=== PATIENT | female | born 1960 | race Caucasian/White ===

== ENCOUNTER 2017-11-05 11:59 | Observation (INO) | payer BC, MEDICAID ==
[2017-11-05 12:08] VITALS: BMI 32.0
--- NOTE | 2017-11-05 12:51 | ED PDOC ---
HPI: General Adult Time Seen by Provider: 11/05/17 12:28 Chief Complaint (Nursing): Dizziness/Lightheaded Additional Complaint(s): 57 y/o F c PMHx HTN, asthma p/w vertigo x 2 weeks. Patient states she has had a headache for over 3 weeks, which she describes as a tightness in the bitemporal area. She notes that 2 weeks ago (Last time well), she began having a spinning sensation that has been constant, does not seem exacerbated by head turning, and has made her unable to ambulate. She states she came to ED today with 2 family members holding each of her arms. Today, the vertigo became more severe and made her nauseated, causing her to vomit once. She also reports intermittent chills. Denies fever, decreased visual acuity, numbness, weakness, difficulty speaking/drinking/eating, dysuria, dyspnea. NIHSS Stroke Scale - Date/Time Evaluation Performed Date Performed: 11/05/17 Time Performed: 12:43 When Was NIHSS Performed: Baseline - How Severe is the Stroke Level of Consciousness: 0=Alert LOC to Questions: 0=Both comments correct LOC to commands: 0=Obeys both correctly Best Gaze: 0=Normal Visual: 0=No visual loss Facial: 0=Normal Motor Arm - Left: 0=No drift Motor Arm - Right: 0=No drift Motor Leg - Left: 0=No drift Motor Leg - Right: 0=No drift Limb Ataxia: 0=Absent Sensory: 0=Normal Best Language: 0=No aphasia Dysarthia: 0=Normal articulation Extinction & Inattention (Neglect): 0=Normal, no object Score: 0 Severity Of Stroke: 0 = No Stroke rTPA Inclusion/Exclusion - Refusal of Treatment Patient Refused Treatment: No - Inclusion Criteria for Altepase Patient is 18 years or Older: Yes The Clinical Diagnosis of Ischemic Stroke That is Causing a Potentially Disabling Neurological Deficit: No Time of Onset is Well Established to be Less Than 270 Minute Before Treatment Would Begin: No Risk/Benefit Discussed With Patient/Family Member Present: Yes Past Medical History Vital Signs: Last Vital Signs Temp 98.4 F 11/05/17 12:08 Pulse 84 11/05/17 14:03 Resp 20 11/05/17 12:08 BP 136/82 11/05/17 12:08 Pulse Ox 97 11/05/17 14:03 - Medical History PMH: Asthma, HTN (no medications) Denies: Chronic Kidney Disease - Surgical History Surgical History: - Family History Family History: States: Unknown Family Hx - Home Medications Home Medications: Ambulatory Orders Medication Instructions Recorded Albuterol 0.083% [Albuterol 0.083% 3 ml IH TID PRN 08/24/15 Inhal Liliana (2.5 mg/3 ml) UD] Albuterol HFA [Ventolin HFA 90 1 puff IH TID PRN 08/24/15 mcg/actuation (8 g)] Albuterol Sulfate [Proair Hfa] 1 puff IH BID PRN 11/05/17 - Allergies Allergies/Adverse Reactions: Allergies Allergy/AdvReac Type Severity Reaction Status Date / Time FISH Allergy RASH Verified 08/26/15 12:30 fluticasone propionate Allergy SHORTNESS Verified 08/26/15 12:33 [From Advair Diskus] OF BREATH iodine Allergy URTICARIA Verified 11/05/17 12:19 salmeterol xinafoate Allergy SHORTNESS Verified 08/26/15 12:33 [From Advair Diskus] OF BREATH Review of Systems ROS Statement: Except As Marked, All Systems Reviewed And Found Negative Constitutional: Negative for: Fever Cardiovascular: Negative for: Chest Pain Physical Exam - Physical Exam Comments: Gen: NAD Head: NC/AT Eyes: PERRL ENT: MMM, no pharyngeal erythema or exudates Neck: Supple Chest: No tenderness CV: Regular rate Lungs: CTA b/l Abd: Soft, NT Back: No CVA tenderness Skin: No rash Extremities: FROM x 4 Neuro: Alert, oriented x 3, CNN II to XII intact, motor 5/5 x 4, sensation to light touch intact bilaterally, FTN, HTS, and ANTONIO all performed slowly without ataxia, gait unsteady. Jana Hallpike no effect. - Laboratory Results Result Diagrams: 11/05/17 12:48 11/05/17 12:48 - ECG ECG Rhythm: Positive for: Normal QRS, Normal ST Segment, Sinus Rhythm (normal) Rate: 84 O2 Sat by Pulse Oximetry: 97 (RA) Pulse Ox Interpretation: Normal Medical Decision Making Medical Decision Making: Time:1326 HISTORY: constant vertigo COMPARISON: No prior. FINDINGS: LUNGS: No active pulmonary disease. PLEURA: No significant pleural effusion identified, no pneumothorax apparent. CARDIOVASCULAR: Normal. OSSEOUS STRUCTURES: No significant abnormalities. VISUALIZED UPPER ABDOMEN: Normal. OTHER FINDINGS: None. IMPRESSION: No active disease. Aspirin administered. Dr. Jackson consulted, recommends Valium 2mg Q8H and MRA Head and neck. States that CVA by this time should be evident on CT Head but symptoms could still be result of vertebrobasilar insufficiency. Hospitalist accepts admission. Disposition - Clinical Impression Clinical Impression: Vertigo, constant - Patient ED Disposition Is Patient to be Admitted: Yes Discussed With : Berto Jackson Doctor Will See Patient In The: Hospital - Disposition Disposition Time: 16:44 Condition: STABLE Forms: [facility] ([place])
[2017-11-05 12:56] LABS: BASO # 0.1 K/uL (0.0-0.2); BASO % 0.7 % (0.0-2.0); EOS # 0.1 K/uL (0.0-0.7); EOS % 1.4 % (0.0-4.0); HEMOGLOBIN 14.4 g/dL (12.0-16.0); LYMPH # 1.4 K/uL (1.0-4.3); LYMPH % 15.1 % (20.0-40.0); MEAN CORPUSCULAR HEMOGLOBIN 28.5 pg (27.0-31.0); MEAN CORPUSCULAR HGB CONC 34.8 g/dL (33.0-37.0); MEAN PLATELET VOLUME 8.6 fl (7.2-11.7); MONO # 0.6 K/uL (0.0-0.8); NEUT # 6.9 K/uL (1.8-7.0); NEUT % 75.8 % (50.0-75.0); NRBC % 0.2 % (0.0-0.0); RBC 5.05 Mil/uL (3.80-5.20); RED CELL DISTRIBUTION WIDTH 12.8 % (11.5-14.5); WHITE BLOOD COUNT 9.1 K/uL (4.8-10.8)
[2017-11-05] MEDS: Sodium Chloride 0.9% 1,000 ML IV SCH ×2 (13:01→21:58)
[2017-11-05 13:06] LABS: ALB/GLOB RATIO 1.2 (1.0-2.1); ALBUMIN 4.2 g/dL (3.5-5.0); ALT/SGPT 41 U/L (9-52); AST/SGOT 28 U/L (14-36); BLOOD UREA NITROGEN 12 mg/dl (7-17); CALCIUM 9.5 mg/dL (8.4-10.2); GFR AFRICAN-AMERICAN > 60; GFR NON-AFRICAN AMERICAN > 60; HDL CHOLESTEROL 46 MG/DL (30-70)
[2017-11-05 13:16] LABS: LDL CHOLESTEROL 141 mg/dL (0-129)
[2017-11-05 13:20] LABS: INR 1.1 (0.9-1.2); PARTIAL THROMBOPLASTIN TIME 29.9 Seconds (25.6-37.1); PROTHROMBIN TIME 12.1 Seconds (9.8-13.1)
[2017-11-05 13:20] LABS: SQUAMOUS EPITHIAL 2 /hpf (0-5); URINE BACTERIA OCC (<OCC); URINE BILIRUBIN NEGATIVE (NEGATIVE); URINE BLOOD MODERATE (NEGATIVE); URINE CLARITY SLIGHTY-CLOUDY (Clear); URINE COLOR YELLOW (YELLOW); URINE GLUCOSE (UA) 50 mg/dL (Normal); URINE LEUKOCYTE ESTERASE NEG Leu/uL (Negative); URINE PROTEIN NEGATIVE (NEGATIVE); URINE UROBILINOGEN 0.2-1.0 mg/dL (0.2-1.0)
--- NOTE | 2017-11-05 13:27 | RAD ---
HISTORY: constant vertigo COMPARISON: No prior. FINDINGS: LUNGS: No active pulmonary disease. PLEURA: No significant pleural effusion identified, no pneumothorax apparent. CARDIOVASCULAR: Normal. OSSEOUS STRUCTURES: No significant abnormalities. VISUALIZED UPPER ABDOMEN: Normal. OTHER FINDINGS: None. IMPRESSION: No active disease.
--- NOTE | 2017-11-05 15:18 | CT ---
PROCEDURE: CT HEAD WITHOUT CONTRAST. HISTORY: constant vertigo COMPARISON: None available. TECHNIQUE: Axial computed tomography images were obtained through the head/brain without intravenous contrast. Radiation dose: Total exam DLP = mGy-cm. This CT exam was performed using one or more of the following dose reduction techniques: Automated exposure control, adjustment of the mA and/or kV according to patient size, and/or use of iterative reconstruction technique. FINDINGS: HEMORRHAGE: No intracranial hemorrhage. BRAIN: No mass effect or edema. No atrophy or chronic microvascular ischemic changes. VENTRICLES: Unremarkable. No hydrocephalus. CALVARIUM: Unremarkable. PARANASAL SINUSES: Unremarkable as visualized. No significant inflammatory changes. MASTOID AIR CELLS: Unremarkable as visualized. No inflammatory changes. OTHER FINDINGS: None. IMPRESSION: Normal CT of the Head.
--- NOTE | 2017-11-05 17:47 | CP.PCM.HP ---
History of Present Illness - History of Present Illness History of Present Illness: 57 yo female with history of Asthma brought by family because of persistent dizziness associated with generalized headache since 2 weeks ago. Took Tylenol and Ibuprofen but did not have relief. Denied motor or sensory deficits. Today her dizziness became more severe that she had to be supported on both sides by her relatives. Present on Admission - Present on Admission Any Indicators Present on Admission: No History of DVT/PE: No History of Uncontrolled Diabetes: No Urinary Catheter: No Decubitus Ulcer Present: No Review of Systems - Review of Systems All systems: reviewed and no additional remarkable complaints except (aside from those mentioned above, 12 point system review were negative by me) Past Patient History - Past Medical History & Family History Past Medical History?: Yes - Past Social History Smoking Status: Never Smoked Alcohol: > 2 Drinks/Day Drugs: Denies Home Situation {Lives}: With Family - CARDIAC Hx Hypertension: Yes (no medications) - PULMONARY Hx Asthma: Yes - NEUROLOGICAL Hx Neurological Disorder: No - HEENT Hx HEENT Problems: No - RENAL Hx Chronic Kidney Disease: No - ENDOCRINE/METABOLIC Hx Endocrine Disorders: No - HEMATOLOGICAL/ONCOLOGICAL Hx Blood Disorders: No - INTEGUMENTARY Hx Dermatological Problems: No - MUSCULOSKELETAL/RHEUMATOLOGICAL Hx Musculoskeletal Disorders: No Hx Falls: No - GASTROINTESTINAL Hx Gastrointestinal Disorders: No - GENITOURINARY/GYNECOLOGICAL Hx Genitourinary Disorders: No - PSYCHIATRIC Hx Psychophysiologic Disorder: No Hx Substance Use: No - SURGICAL HISTORY Hx Surgeries: Yes Hx Section: Yes - ANESTHESIA Hx Anesthesia: Yes Hx Anesthesia Reactions: No Hx Malignant Hyperthermia: No Meds Allergies/Adverse Reactions: Allergies Allergy/AdvReac Type Severity Reaction Status Date / Time FISH Allergy RASH Verified 08/26/15 12:30 fluticasone propionate Allergy SHORTNESS Verified 08/26/15 12:33 [From Advair Diskus] OF BREATH iodine Allergy URTICARIA Verified 11/05/17 12:19 salmeterol xinafoate Allergy SHORTNESS Verified 08/26/15 12:33 [From Advair Diskus] OF BREATH Physical Exam - Constitutional Appears: No Acute Distress - Head Exam Head Exam: ATRAUMATIC - Eye Exam Eye Exam: PERRL. absent: Nystagmus - ENT Exam ENT Exam: Mucous Membranes Moist - Neck Exam Neck exam: Negative for: Meningismus - Respiratory Exam Respiratory Exam: absent: Rales, Rhonchi, Wheezes, Respiratory Distress - Cardiovascular Exam Cardiovascular Exam: REGULAR RHYTHM, +S1, +S2 - GI/Abdominal Exam GI & Abdominal Exam: Soft. absent: Tenderness - Rectal Exam Rectal Exam: Deferred - Extremities Exam Extremities exam: Negative for: calf tenderness, pedal edema - Back Exam Back exam: absent: tenderness - Neurological Exam Neurological exam: Alert, Oriented x3 - Psychiatric Exam Psychiatric exam: Normal Affect - Skin Skin Exam: Dry, Intact Results - Vital Signs Recent Vital Signs: Last Vital Signs Temp 98.4 F 11/05/17 12:08 Pulse 86 11/05/17 17:05 Resp 16 11/05/17 17:05 BP 125/58 L 11/05/17 17:05 Pulse Ox 97 11/05/17 17:05 - Labs Result Diagrams: 11/05/17 12:48 11/05/17 12:48 Labs: Laboratory Results - last 24 hr 11/05/17 11/05/17 11/05/17 12:30 12:48 12:48 WBC 9.1 RBC 5.05 Hgb 14.4 Hct 41.4 MCV 82.0 D MCH 28.5 MCHC 34.8 RDW 12.8 Plt Count 243 MPV 8.6 Neut % (Auto) 75.8 H Lymph % (Auto) 15.1 L [place] % (Auto) 7.0 Eos % (Auto) 1.4 Baso % (Auto) 0.7 Neut # (Auto) 6.9 Lymph # (Auto) 1.4 [place] # (Auto) 0.6 Eos # (Auto) 0.1 Baso # (Auto) 0.1 PT INR APTT Sodium 143 Potassium 4.0 Chloride 102 Carbon Dioxide 26 Anion Gap 19 BUN 12 Creatinine 0.7 Est GFR ( Amer) > 60 Est GFR (Non-Af Amer) > 60 POC Glucose (mg/dL) 96 Random Glucose 111 H Calcium 9.5 Total Bilirubin 1.6 H AST 28 ALT 41 Alkaline Phosphatase 104 Troponin I 0.0250 Total Protein 7.8 Albumin 4.2 Globulin 3.6 Albumin/Globulin Ratio 1.2 Triglycerides 112 Cholesterol 225 H LDL Cholesterol Direct 141 H HDL Cholesterol 46 Urine Color Urine Clarity Urine pH Ur Specific [place] Urine Protein Urine Glucose (UA) Urine Ketones Urine Blood Urine Nitrate Urine Bilirubin Urine Urobilinogen Ur Leukocyte Esterase Urine RBC (Auto) Urine Microscopic WBC Ur Squamous Epith Cells Urine Bacteria Blood Type Blood Type Confirm Antibody Screen BBK History Checked 11/05/17 11/05/17 11/05/17 12:48 12:48 13:06 WBC RBC Hgb Hct MCV MCH MCHC RDW Plt Count MPV Neut % (Auto) Lymph % (Auto) [place] % (Auto) Eos % (Auto) Baso % (Auto) Neut # (Auto) Lymph # (Auto) [place] # (Auto) Eos # (Auto) Baso # (Auto) PT 12.1 INR 1.1 APTT 29.9 Sodium Potassium Chloride Carbon Dioxide Anion Gap BUN Creatinine Est GFR ( Amer) Est GFR (Non-Af Amer) POC Glucose (mg/dL) Random Glucose Calcium Total Bilirubin AST ALT Alkaline Phosphatase Troponin I Total Protein Albumin Globulin Albumin/Globulin Ratio Triglycerides Cholesterol LDL Cholesterol Direct HDL Cholesterol Urine Color Yellow Urine Clarity Slighty-cloudy Urine pH 7.0 Ur Specific [place] 1.017 Urine Protein Negative Urine Glucose (UA) 50 Urine Ketones Trace Urine Blood Moderate Urine Nitrate Negative Urine Bilirubin Negative Urine Urobilinogen 0.2-1.0 Ur Leukocyte Esterase Neg Urine RBC (Auto) 8 H Urine Microscopic WBC 1 Ur Squamous Epith Cells 2 Urine Bacteria Occ H Blood Type Cancelled Blood Type Confirm Antibody Screen Cancelled BBK History Checked Cancelled 11/05/17 11/05/17 11/05/17 13:09 13:50 14:23 WBC RBC Hgb Hct MCV MCH MCHC RDW Plt Count MPV Neut % (Auto) Lymph % (Auto) [place] % (Auto) Eos % (Auto) Baso % (Auto) Neut # (Auto) Lymph # (Auto) [place] # (Auto) Eos # (Auto) Baso # (Auto) PT INR APTT Sodium Potassium Chloride Carbon Dioxide Anion Gap BUN Creatinine Est GFR ( Amer) Est GFR (Non-Af Amer) POC Glucose (mg/dL) Random Glucose Calcium Total Bilirubin AST ALT Alkaline Phosphatase Troponin I Total Protein Albumin Globulin Albumin/Globulin Ratio Triglycerides Cholesterol LDL Cholesterol Direct HDL Cholesterol Urine Color Urine Clarity Urine pH Ur Specific [place] Urine Protein Urine Glucose (UA) Urine Ketones Urine Blood Urine Nitrate Urine Bilirubin Urine Urobilinogen Ur Leukocyte Esterase Urine RBC (Auto) Urine Microscopic WBC Ur Squamous Epith Cells Urine Bacteria Blood Type Cancelled A POSITIVE Blood Type Confirm A POSITIVE Antibody Screen Cancelled Negative BBK History Checked Cancelled No verified bt Assessment & Plan - Assessment and Plan (Free Text) Assessment: 57 yo female with history of Asthma brought by family because of persistent dizziness associated with generalized headache since 2 weeks ago. Took Tylenol and Ibuprofen but did not have relief. Denied motor or sensory deficits. Today her dizziness became more severe that she had to be supported on both sides by her relatives. 1. Vertigo observation in telemetry CT scan of head: negative for infarct or bleed neurology consult with Dr Jackson called by ER drug screen 2, Asthma asymptomatic
[2017-11-05] MEDS ORDERED: Albuterol 0.083% Inhal Sol (2.5 mg/3 mL) UD IH PRN (18:01)
--- NOTE | 2017-11-05 19:12 | CP.PCM.CON ---
History of Present Illness - History of Present Illness History of Present Illness: Mrs. Hughes is a 57-year-old woman with a past medical history of hypertension, who states she has been having headache and vertigo for the last week. She complains of having gait instability and feels as the she is unable to ambulate normally. She is allergic to contrast and therefor CTA was not done; however, CT scan of the head was normal. She did not improve much with meclizine. Review of Systems - Review of Systems All systems: reviewed and no additional remarkable complaints except Past Patient History - Past Medical History & Family History Past Medical History?: Yes - Past Social History Smoking Status: Never Smoked Alcohol: > 2 Drinks/Day Drugs: Denies Home Situation {Lives}: With Family - CARDIAC Hx Hypertension: Yes (no medications) - PULMONARY Hx Asthma: Yes - NEUROLOGICAL Hx Neurological Disorder: No - HEENT Hx HEENT Problems: No - RENAL Hx Chronic Kidney Disease: No - ENDOCRINE/METABOLIC Hx Endocrine Disorders: No - HEMATOLOGICAL/ONCOLOGICAL Hx Blood Disorders: No - INTEGUMENTARY Hx Dermatological Problems: No - MUSCULOSKELETAL/RHEUMATOLOGICAL Hx Musculoskeletal Disorders: No Hx Falls: No - GASTROINTESTINAL Hx Gastrointestinal Disorders: No - GENITOURINARY/GYNECOLOGICAL Hx Genitourinary Disorders: No - PSYCHIATRIC Hx Psychophysiologic Disorder: No Hx Substance Use: No - SURGICAL HISTORY Hx Surgeries: Yes Hx Section: Yes - ANESTHESIA Hx Anesthesia: Yes Hx Anesthesia Reactions: No Hx Malignant Hyperthermia: No Meds Allergies/Adverse Reactions: Allergies Allergy/AdvReac Type Severity Reaction Status Date / Time FISH Allergy RASH Verified 08/26/15 12:30 fluticasone propionate Allergy SHORTNESS Verified 08/26/15 12:33 [From Advair Diskus] OF BREATH iodine Allergy URTICARIA Verified 11/05/17 12:19 salmeterol xinafoate Allergy SHORTNESS Verified 08/26/15 12:33 [From Advair Diskus] OF BREATH - Medications Medications: Current Medications Albuterol (Ventolin Hfa 90 Mcg/Actuation (8 G)) 1 puff IH TID PRN PRN Reason: Shortness of Breath Albuterol Sulfate (Albuterol 0.083% Inhal Liliana (2.5 Mg/3 Ml) Ud) 2.5 mg IH TID PRN PRN Reason: Shortness of Breath Diazepam (Valium) 2 mg IVP Q8H FRED Sodium Chloride (Sodium Chloride 0.9%) 1,000 mls @ 100 mls/hr IV .Q10H FRED Last Admin: 11/05/17 13:01 Dose: 100 mls/hr Physical Exam - Constitutional Appears: Well - Eye Exam Eye Exam: EOMI, Normal appearance, PERRL - Neurological Exam Neurological exam: Abnormal Gait, Alert, CN II-XII Intact, Oriented x3, Reflexes Normal Additional comments: Wide-based gait. No nystagmus and no ataxia on exam. NIHSS = 0 Results - Vital Signs Recent Vital Signs: Last Vital Signs Temp 98.8 F 11/05/17 18:30 Pulse 84 11/05/17 18:30 Resp 18 11/05/17 18:30 BP 120/80 11/05/17 18:30 Pulse Ox 98 11/05/17 18:30 - Labs Result Diagrams: 11/05/17 12:48 11/05/17 12:48 Labs: Laboratory Results - last 24 hr 11/05/17 11/05/17 11/05/17 12:30 12:48 12:48 WBC 9.1 RBC 5.05 Hgb 14.4 Hct 41.4 MCV 82.0 D MCH 28.5 MCHC 34.8 RDW 12.8 Plt Count 243 MPV 8.6 Neut % (Auto) 75.8 H Lymph % (Auto) 15.1 L [place] % (Auto) 7.0 Eos % (Auto) 1.4 Baso % (Auto) 0.7 Neut # (Auto) 6.9 Lymph # (Auto) 1.4 [place] # (Auto) 0.6 Eos # (Auto) 0.1 Baso # (Auto) 0.1 PT INR APTT Sodium 143 Potassium 4.0 Chloride 102 Carbon Dioxide 26 Anion Gap 19 BUN 12 Creatinine 0.7 Est GFR ( Amer) > 60 Est GFR (Non-Af Amer) > 60 POC Glucose (mg/dL) 96 Random Glucose 111 H Calcium 9.5 Total Bilirubin 1.6 H AST 28 ALT 41 Alkaline Phosphatase 104 Troponin I 0.0250 Total Protein 7.8 Albumin 4.2 Globulin 3.6 Albumin/Globulin Ratio 1.2 Triglycerides 112 Cholesterol 225 H LDL Cholesterol Direct 141 H HDL Cholesterol 46 Urine Color Urine Clarity Urine pH Ur Specific [place] Urine Protein Urine Glucose (UA) Urine Ketones Urine Blood Urine Nitrate Urine Bilirubin Urine Urobilinogen Ur Leukocyte Esterase Urine RBC (Auto) Urine Microscopic WBC Ur Squamous Epith Cells Urine Bacteria Blood Type Blood Type Confirm Antibody Screen BBK History Checked 11/05/17 11/05/17 11/05/17 12:48 12:48 13:06 WBC RBC Hgb Hct MCV MCH MCHC RDW Plt Count MPV Neut % (Auto) Lymph % (Auto) [place] % (Auto) Eos % (Auto) Baso % (Auto) Neut # (Auto) Lymph # (Auto) [place] # (Auto) Eos # (Auto) Baso # (Auto) PT 12.1 INR 1.1 APTT 29.9 Sodium Potassium Chloride Carbon Dioxide Anion Gap BUN Creatinine Est GFR ( Amer) Est GFR (Non-Af Amer) POC Glucose (mg/dL) Random Glucose Calcium Total Bilirubin AST ALT Alkaline Phosphatase Troponin I Total Protein Albumin Globulin Albumin/Globulin Ratio Triglycerides Cholesterol LDL Cholesterol Direct HDL Cholesterol Urine Color Yellow Urine Clarity Slighty-cloudy Urine pH 7.0 Ur Specific [place] 1.017 Urine Protein Negative Urine Glucose (UA) 50 Urine Ketones Trace Urine Blood Moderate Urine Nitrate Negative Urine Bilirubin Negative Urine Urobilinogen 0.2-1.0 Ur Leukocyte Esterase Neg Urine RBC (Auto) 8 H Urine Microscopic WBC 1 Ur Squamous Epith Cells 2 Urine Bacteria Occ H Blood Type Cancelled Blood Type Confirm Antibody Screen Cancelled BBK History Checked Cancelled 11/05/17 11/05/17 11/05/17 13:09 13:50 14:23 WBC RBC Hgb Hct MCV MCH MCHC RDW Plt Count MPV Neut % (Auto) Lymph % (Auto) [place] % (Auto) Eos % (Auto) Baso % (Auto) Neut # (Auto) Lymph # (Auto) [place] # (Auto) Eos # (Auto) Baso # (Auto) PT INR APTT Sodium Potassium Chloride Carbon Dioxide Anion Gap BUN Creatinine Est GFR ( Amer) Est GFR (Non-Af Amer) POC Glucose (mg/dL) Random Glucose Calcium Total Bilirubin AST ALT Alkaline Phosphatase Troponin I Total Protein Albumin Globulin Albumin/Globulin Ratio Triglycerides Cholesterol LDL Cholesterol Direct HDL Cholesterol Urine Color Urine Clarity Urine pH Ur Specific [place] Urine Protein Urine Glucose (UA) Urine Ketones Urine Blood Urine Nitrate Urine Bilirubin Urine Urobilinogen Ur Leukocyte Esterase Urine RBC (Auto) Urine Microscopic WBC Ur Squamous Epith Cells Urine Bacteria Blood Type Cancelled A POSITIVE Blood Type Confirm A POSITIVE Antibody Screen Cancelled Negative BBK History Checked Cancelled No verified bt Assessment & Plan (1) Vertigo, constant Assessment and Plan: May be benign positional vertigo or vestibular neuronitis since she did have a cold about a month ago that took her some time to recover from. Will start her on Valium 2 mg Q8 for the vertigo and will obtain MRI/MRA of the head/neck to evaluate for possible posterior circulation infarct, or vertebro-basilar insufficiencty. Will give her aspirin 81 mg daily and complete the rest of the work-up. Thank you. Status: Acute Priority: High
[2017-11-05] MEDS: diaZEpam 10 mg/2 ml Inj IVP SCH (22:02)
[2017-11-05] MEDS: Albuterol HFA 90 mcg/actuation (8 g) IH PRN (22:06)
[2017-11-06 05:37] LABS: BASO # 0.1 K/uL (0.0-0.2); BASO % 1.1 % (0.0-2.0); EOS # 0.3 K/uL (0.0-0.7); EOS % 3.5 % (0.0-4.0); HEMOGLOBIN 13.6 g/dL (12.0-16.0); LYMPH # 2.2 K/uL (1.0-4.3); LYMPH % 29.6 % (20.0-40.0); MEAN CELL VOLUME 82.8 fl (81.0-99.0); MEAN CORPUSCULAR HEMOGLOBIN 28.7 pg (27.0-31.0); MEAN CORPUSCULAR HGB CONC 34.7 g/dL (33.0-37.0); MEAN PLATELET VOLUME 8.9 fl (7.2-11.7); MONO # 0.6 K/uL (0.0-0.8); MONO % 8.5 % (0.0-10.0); NEUT # 4.3 K/uL (1.8-7.0); NEUT % 57.3 % (50.0-75.0); NRBC % 0.1 % (0.0-0.0); RBC 4.73 Mil/uL (3.80-5.20); WHITE BLOOD COUNT 7.5 K/uL (4.8-10.8)
[2017-11-06 06:07] LABS: ALB/GLOB RATIO 1.1 (1.0-2.1); ALBUMIN 3.6 g/dL (3.5-5.0); ALT/SGPT 40 U/L (9-52); AST/SGOT 25 U/L (14-36); BLOOD UREA NITROGEN 17 mg/dl (7-17); GFR AFRICAN-AMERICAN > 60; GFR NON-AFRICAN AMERICAN > 60
[2017-11-06] MEDS: Sodium Chloride 0.9% 1,000 ML IV SCH ×2 (08:10→18:20)
--- NOTE | 2017-11-06 08:16 | CARD ---
APPROVED REPORT EKG Measurement Heart [id number] <Conclusion> Normal sinus rhythm Normal ECG
[2017-11-06] MEDS: diaZEpam 10 mg/2 ml Inj IVP SCH ×2 (10:36→18:15)
--- NOTE | 2017-11-06 10:55 | MRI ---
PROCEDURE: MRI BRAIN WITHOUT CONTRAST HISTORY: r/o post circ infarct COMPARISON: None. TECHNIQUE: Multiplanar, multisequence MR images of the brain were obtained without intravenous contrast enhancement. FINDINGS: HEMORRHAGE: None DWI: No evidence of an acute or early subacute infarction. BRAIN PARENCHYMA: Good corticomedullary differentiation is appreciated throughout the sequences submitted, however, there are multiple small subcortical foci identified at the left frontal lobe anterosuperiorly, increased with long TR weighting in isointense to slightly diminished with short TE weighting. The remaining cerebral white matter appears normal including the corpus callosum. The pattern could reflect asymmetric chronic microangiopathy. Correlate clinically with the patient's clinical infarction pattern. Consider follow-up MRI with contrast. No mass effect is appreciated throughout. The brainstem and cerebellum appear unremarkable in signal overall. Midline brain anatomy appears within normal limits including the brainstem and craniocervical junction. The cerebellum appears unremarkable There is no suspicious extra-axial fluid collection identified. VENTRICLES: Unremarkable. No hydrocephalus. CRANIUM: Unremarkable. ORBITS: Grossly unremarkable. PARANASAL SINUSES/MASTOIDS: Clear VASCULAR SYSTEM: Skull base flow voids intact. OTHER FINDINGS: None. IMPRESSION: Limited white matter abnormalities are identified the left frontal lobe with no acute or subacute brain infarction identified. The remaining white matter is unremarkable throughout the remainder of the cerebrum with infratentorial brain parenchyma unremarkable throughout. While this pattern may reflect chronic microangiopathy, it appears asymmetric and there is no prior comparison available. Correlation with clinical infarct pattern is advised though this appears to be an incidental finding based on clinical indication posterior circulation infarct. Follow-up MRI with contrast is recommended for additional characterization of the left frontal lobe.
--- NOTE | 2017-11-06 10:58 | MRI ---
PROCEDURE: Magnetic Resonance Angiography Brain HISTORY: r/o post circ infarct COMPARISON: None available. TECHNIQUE: 3D time of flight MR angiography of the intracranial arteries was performed. Rotating maximum intensity projection images were generated. FINDINGS: INTERNAL CAROTID ARTERIES: Unremarkable. The skull base, petrous, cavernous and supraclinoid segments are bilaterally widely patient. ANTERIOR CEREBRAL ARTERIES: Unremarkable. A1 and A2 segments are widely patent. Smaller distal branches unremarkable, as visualized. MIDDLE CEREBRAL ARTERIES: Unremarkable. M1 and M2 segments are widely patent. Perisylvian branches grossly symmetric. POSTERIOR CIRCULATION: Basilar Artery: Unremarkable. Distal Vertebral Arteries: Unremarkable. Posterior Cerebral Arteries: Unremarkable. Posterior Inferior Cerebellar Arteries: Unremarkable. ANEURYSM/ VASCULAR MALFORMATIONS: None. OTHER FINDINGS: None. IMPRESSION: Unremarkable MR angiography of the brain.
--- NOTE | 2017-11-06 11:00 | MRI ---
PROCEDURE: MR Angiography of the neck without contrast HISTORY: r/o post circ infarct COMPARISON: None available. TECHNIQUE: 3D [id number] angiography of the neck was performed. Rotating maximum intensity projection images of the cervical carotid and vertebral arteries were generated. The origins of the common carotid arteries were not visualized, which is a limitation inherent to the non-contrast time of flight technique. FINDINGS: RIGHT CAROTID ARTERIES: Common Carotid Artery: Normal. Carotid Bifurcation: Normal. Internal Carotid Artery:Normal. External Carotid Artery (proximal branches): Normal. LEFT CAROTID ARTERIES: Common Carotid Artery: Normal. Carotid Bifurcation: Normal. Internal Carotid Artery:Normal. External Carotid Artery (proximal branches): Normal. VERTEBRAL ARTERIES: Right Vertebral Artery: Normal. Left Vertebral Artery: Normal. OTHER FINDINGS: None. IMPRESSION: Normal MR Angiography of the neck.
--- NOTE | 2017-11-06 13:09 | CP.PCM.PN ---
Subjective - Date & Time of Evaluation Date of Evaluation: 11/06/17 Time of Evaluation: 12:59 - Subjective Subjective: Ms. Hughes was seen and examined at the bedside. She is alert, oriented x 3. She denies any blurred vision, diplopia, nausea, or vomiting. She further claims of feeling much better after she took valium last night. She is able to ambulate to and from the bed to the bathroom with minimal assistance. She is able to follow simple commands. MRA of the head and neck are normal, MRI of the brain showed limited white matter abnormalities are identified in the left frontal lobe with no acute or subacute brain infarction identified. The remaining white matter is unremarkable throughout the remainder of the cerebrum with infratentorial brain parenchyma unremarkable. The pattern may reflect chronic microangiopathy, it appears asymmetric and there is no prior comparison available. There was no untoward events overnight. Objective - Vital Signs/Intake and Output Vital Signs (last 24 hours): Temp Pulse Resp BP Pulse Ox 98.1 F 87 18 125/75 99 11/06/17 12:41 11/06/17 12:41 11/06/17 12:41 11/06/17 12:41 11/06/17 12:41 - Medications Medications: Current Medications Albuterol (Ventolin Hfa 90 Mcg/Actuation (8 G)) 1 puff IH TID PRN PRN Reason: Shortness of Breath Last Admin: 11/05/17 22:06 Dose: 1 puff Albuterol Sulfate (Albuterol 0.083% Inhal Liliana (2.5 Mg/3 Ml) Ud) 2.5 mg IH TID PRN PRN Reason: Shortness of Breath Aspirin (Aspirin Chewable) 81 mg PO DAILY [facility] Last Admin: 11/06/17 10:32 Dose: 81 mg Atorvastatin Calcium (Lipitor) 20 mg PO DAILY [facility] Last Admin: 11/06/17 10:32 Dose: 20 mg Diazepam (Valium) 2 mg IVP Q8H [facility] Last Admin: 11/06/17 10:36 Dose: 2 mg Sodium Chloride (Sodium Chloride 0.9%) 1,000 mls @ 100 mls/hr IV .Q10H [facility] Last Admin: 11/06/17 08:10 Dose: 100 mls/hr Meclizine HCl (Antivert) 25 mg PO BID [facility] Last Admin: 11/06/17 10:32 Dose: 25 mg - Labs Labs: 11/06/17 04:20 11/06/17 04:20 PT 12.1 Seconds (9.8-13.1) 11/05/17 12:48 INR 1.1 (0.9-1.2) 11/05/17 12:48 APTT 29.9 Seconds (25.6-37.1) 11/05/17 12:48 - Constitutional Appears: No Acute Distress - Head Exam Head Exam: NORMAL INSPECTION - Neurological Exam Neurological Exam: Alert, Awake Neuro motor strength exam: Left Upper Extremity: 5, Right Upper Extremity: 5, Left Lower Extremity: 5, Right Lower Extremity: 5 Additional comments: She is alert, oriented, follows imple commands. Sensation is intact. Assessment and Plan (1) Vertigo, constant Assessment & Plan: Case discussed with Dr. Jackson, continue all current medical and physical therapies. Recommend MRI of the brain with contrast to evaluate left frontal lobe. Status: Acute
[2017-11-06] MEDS ORDERED: Gadodiamide 287 MG/ML VIAL (15ML) IV ONE (16:52)
--- NOTE | 2017-11-06 16:52 | CP.PCM.PN ---
Subjective - Date & Time of Evaluation Date of Evaluation: 11/06/17 Time of Evaluation: 13:00 - Subjective Subjective: Still with vertigo but better sl headache denies CP no SOB no abd pain no tinnitus Objective - Vital Signs/Intake and Output Vital Signs (last 24 hours): Temp Pulse Resp BP Pulse Ox 97.4 F L 93 H 20 161/75 H 97 11/06/17 16:13 11/06/17 16:13 11/06/17 16:13 11/06/17 16:13 11/06/17 16:13 - Medications Medications: Current Medications Albuterol (Ventolin Hfa 90 Mcg/Actuation (8 G)) 1 puff IH TID PRN PRN Reason: Shortness of Breath Last Admin: 11/05/17 22:06 Dose: 1 puff Albuterol Sulfate (Albuterol 0.083% Inhal Liliana (2.5 Mg/3 Ml) Ud) 2.5 mg IH TID PRN PRN Reason: Shortness of Breath Aspirin (Aspirin Chewable) 81 mg PO DAILY [facility] Last Admin: 11/06/17 10:32 Dose: 81 mg Atorvastatin Calcium (Lipitor) 20 mg PO DAILY [facility] Last Admin: 11/06/17 10:32 Dose: 20 mg Diazepam (Valium) 2 mg IVP Q8H [facility] Last Admin: 11/06/17 10:36 Dose: 2 mg Sodium Chloride (Sodium Chloride 0.9%) 1,000 mls @ 100 mls/hr IV .Q10H [facility] Last Admin: 11/06/17 08:10 Dose: 100 mls/hr Meclizine HCl (Antivert) 25 mg PO BID [facility] Last Admin: 11/06/17 10:32 Dose: 25 mg - Labs Labs: 11/06/17 04:20 11/06/17 04:20 PT 12.1 Seconds (9.8-13.1) 11/05/17 12:48 INR 1.1 (0.9-1.2) 11/05/17 12:48 APTT 29.9 Seconds (25.6-37.1) 11/05/17 12:48 - Constitutional Appears: No Acute Distress - Head Exam Head Exam: ATRAUMATIC, NORMAL INSPECTION, NORMOCEPHALIC - Eye Exam Eye Exam: EOMI, Normal appearance, PERRL Pupil Exam: NORMAL ACCOMODATION - ENT Exam ENT Exam: Mucous Membranes Moist, Normal External Ear Exam - Neck Exam Neck Exam: Full ROM. absent: Meningismus - Respiratory Exam Respiratory Exam: NORMAL BREATHING PATTERN. absent: Respiratory Distress - Cardiovascular Exam Cardiovascular Exam: REGULAR RHYTHM, +S1, +S2 - GI/Abdominal Exam GI & Abdominal Exam: Soft, Normal Bowel Sounds. absent: Tenderness - Extremities Exam Extremities Exam: Full ROM, Normal Capillary Refill. absent: Calf Tenderness - Back Exam Back Exam: Full ROM. absent: CVA tenderness (L), CVA tenderness (R) - Neurological Exam Neurological Exam: Alert, Awake, CN II-XII Intact, Oriented x3 Neuro motor strength exam: Left Upper Extremity: 5, Right Upper Extremity: 5, Left Lower Extremity: 5, Right Lower Extremity: 5 - Psychiatric Exam Psychiatric exam: Normal Affect, Normal Mood - Skin Skin Exam: Dry, Normal Color, Warm Assessment and Plan (1) Vertigo Status: Acute - Assessment and Plan (Free Text) Assessment: 57 y/o lady , with hx of Asthma, was brought in because of headache and severe Vertigo for the past few days. CT of head done in ED was negative. MRI of the brain :Limited white matter abnormalities are identified the left frontal lobe with no acute or subacute brain infarction identified. The remaining white matter is unremarkable throughout the remainder of the cerebrum with infratentorial brain parenchyma unremarkable throughout. While this pattern may reflect chronic microangiopathy, it appears asymmetric and there is no prior comparison available. Correlation with clinical infarct pattern is advised though this appears to be an incidental finding based on clinical indication posterior circulation infarct. Follow-up MRI with contrast is recommended for additional characterization of the left frontal lobe. MRA of Head and Neck : negative 1. Intractable Vertigo with SNOW ? Vestibular Neuronitis CVA ruled out - still dizzy but better - MRI of brain : white matter abn left frontal lobe, no infarct _ MRA of brain and Neck : neg - Dr Jackson ( Neuro) consulted - rec to start Valium 2 mg q 8, MRI brain with contrast - Physical therapy- Vestibular therapy 2. Hyperlipidemia - started on Statin DVT proph - Lovenox
[2017-11-07] MEDS: diaZEpam 10 mg/2 ml Inj IVP SCH (00:32)
[2017-11-07] MEDS: Sodium Chloride 0.9% 1,000 ML IV SCH ×2 (06:19→15:31)
[2017-11-07] MEDS: Albuterol HFA 90 mcg/actuation (8 g) IH PRN (08:57)
[2017-11-07] MEDS: Albuterol 0.083% Inhal Sol (2.5 mg/3 mL) UD IH SCH ×3 (09:20→17:02)
[2017-11-07 16:30] VITALS: PULSE 98; RESP 18; TEMP 98; O2SAT 98
--- NOTE | 2017-11-07 17:19 | CP.PCM.DIS ---
Provider - Provider Date of Admission: 11/05/17 16:40 Attending physician: Ra Ku MD Consults: Neuro : Dr Jackson Time Spent in preparation of Discharge (in minutes): 35 Diagnosis - Discharge Diagnosis (1) Vertigo Status: Acute (2) HTN (hypertension) Status: Chronic (3) Asthma, mild intermittent Status: Chronic Hospital Course - Lab Results Lab Results: Most Recent Lab Values WBC 7.5 K/uL (4.8-10.8) 11/06/17 04:20 RBC 4.73 Mil/uL (3.80-5.20) 11/06/17 04:20 Hgb 13.6 g/dL (12.0-16.0) 11/06/17 04:20 Hct 39.1 % (34.0-47.0) 11/06/17 04:20 MCV 82.8 fl (81.0-99.0) 11/06/17 04:20 MCH 28.7 pg (27.0-31.0) 11/06/17 04:20 MCHC 34.7 g/dL (33.0-37.0) 11/06/17 04:20 RDW 13.0 % (11.5-14.5) 11/06/17 04:20 Plt Count 240 K/uL (130-400) 11/06/17 04:20 MPV 8.9 fl (7.2-11.7) 11/06/17 04:20 Neut % (Auto) 57.3 % (50.0-75.0) 11/06/17 04:20 Lymph % (Auto) 29.6 % (20.0-40.0) 11/06/17 04:20 [place] % (Auto) 8.5 % (0.0-10.0) 11/06/17 04:20 Eos % (Auto) 3.5 % (0.0-4.0) 11/06/17 04:20 Baso % (Auto) 1.1 % (0.0-2.0) 11/06/17 04:20 Neut # (Auto) 4.3 K/uL (1.8-7.0) 11/06/17 04:20 Lymph # (Auto) 2.2 K/uL (1.0-4.3) 11/06/17 04:20 [place] # (Auto) 0.6 K/uL (0.0-0.8) 11/06/17 04:20 Eos # (Auto) 0.3 K/uL (0.0-0.7) 11/06/17 04:20 Baso # (Auto) 0.1 K/uL (0.0-0.2) 11/06/17 04:20 PT 12.1 Seconds (9.8-13.1) 11/05/17 12:48 INR 1.1 (0.9-1.2) 11/05/17 12:48 APTT 29.9 Seconds (25.6-37.1) 11/05/17 12:48 Sodium 146 mmol/l (132-148) 11/06/17 04:20 Potassium 3.6 MMOL/L (3.6-5.0) 11/06/17 04:20 Chloride 106 mmol/L (98-107) 11/06/17 04:20 Carbon Dioxide 26 mmol/L (22-30) 11/06/17 04:20 Anion Gap 18 (10-20) 11/06/17 04:20 BUN 17 mg/dl (7-17) 11/06/17 04:20 Creatinine 0.8 mg/dl (0.7-1.2) 11/06/17 04:20 Est GFR ( Amer) > 60 11/06/17 04:20 Est GFR (Non-Af Amer) > 60 11/06/17 04:20 POC Glucose (mg/dL) 96 mg/dL (65-110) 11/05/17 12:30 Random Glucose 111 mg/dL (65-105) H 11/06/17 04:20 Hemoglobin A1c 5.4 % (4.2-6.5) 11/05/17 13:49 Calcium 9.0 mg/dL (8.4-10.2) 11/06/17 04:20 Total Bilirubin 1.2 mg/dl (0.2-1.3) 11/06/17 04:20 AST 25 U/L (14-36) 11/06/17 04:20 ALT 40 U/L (9-52) 11/06/17 04:20 Alkaline Phosphatase 85 U/L (38-126) 11/06/17 04:20 Troponin I 0.0250 ng/mL (0.00-0.120) 11/05/17 12:48 Total Protein 6.9 G/DL (6.3-8.2) 11/06/17 04:20 Albumin 3.6 g/dL (3.5-5.0) 11/06/17 04:20 Globulin 3.3 gm/dL (2.2-3.9) 11/06/17 04:20 Albumin/Globulin Ratio 1.1 (1.0-2.1) 11/06/17 04:20 Triglycerides 112 mg/DL (0-149) 11/05/17 12:48 Cholesterol 225 mg/dL (0-199) H 11/05/17 12:48 LDL Cholesterol Direct 141 mg/dL (0-129) H 11/05/17 12:48 HDL Cholesterol 46 MG/DL (30-70) 11/05/17 12:48 Urine Color Yellow (YELLOW) 11/05/17 13:06 Urine Clarity Slighty-cloudy (Clear) 11/05/17 13:06 Urine pH 7.0 (5.0-8.0) 11/05/17 13:06 Ur Specific [place] 1.017 (1.003-1.030) 11/05/17 13:06 Urine Protein Negative mg/dL (NEGATIVE) 11/05/17 13:06 Urine Glucose (UA) 50 mg/dL (Normal) 11/05/17 13:06 Urine Ketones Trace mg/dL (NEGATIVE) 11/05/17 13:06 Urine Blood Moderate (NEGATIVE) 11/05/17 13:06 Urine Nitrate Negative (NEGATIVE) 11/05/17 13:06 Urine Bilirubin Negative (NEGATIVE) 11/05/17 13:06 Urine Urobilinogen 0.2-1.0 mg/dL (0.2-1.0) 11/05/17 13:06 Ur Leukocyte Esterase Neg [place]/uL (Negative) 11/05/17 13:06 Urine RBC (Auto) 8 /hpf (0-3) H 11/05/17 13:06 Urine Microscopic WBC 1 /hpf (0-5) 11/05/17 13:06 Ur Squamous Epith Cells 2 /hpf (0-5) 11/05/17 13:06 Urine Bacteria Occ (<OCC) H 11/05/17 13:06 Blood Type A POSITIVE 11/05/17 13:50 Blood Type Confirm A POSITIVE 11/05/17 14:23 Antibody Screen Negative 11/05/17 13:50 BBK History Checked No verified bt 11/05/17 13:50 - Hospital Course Hospital Course: 57 y/o lady , with hx of Asthma, was brought in because of headache and severe Vertigo for the past few days. CT of head done in ED was negative. MRI of the brain :Limited white matter abnormalities are identified the left frontal lobe with no acute or subacute brain infarction identified. The remaining white matter is unremarkable throughout the remainder of the cerebrum with infratentorial brain parenchyma unremarkable throughout. While this pattern may reflect chronic microangiopathy, it appears asymmetric and there is no prior comparison available. Correlation with clinical infarct pattern is advised though this appears to be an incidental finding based on clinical indication posterior circulation infarct. Follow-up MRI with contrast is recommended for additional characterization of the left frontal lobe. MRA of Head and Neck : negative MRI of the Brain with contrast :Stable limited white-matter changes left frontal lobe with no abnormal enhancement within this location or the remainder of the supra and infratentorial compartments. Neuro was consulted - started pt on Valium. Dizziness resolved. Physical therapy consulted -felt pt stable to d/c home . Neuro reviewed MRI with contrast findings and cleared pt for discharge. 1. Intractable Vertigo with SNOW poss Vestibular Neuronitis CVA ruled out - MRI of brain : white matter abn left frontal lobe, no infarct _ MRA of brain and Neck : neg - Dr Jackson ( Neuro) consulted - rec to start Valium 2 mg q 8 - Physical therapy- Vestibular therapy - Dizziness resolved - Pt cleared by Neuro for discharge 2. Hyperlipidemia - started on Statin 3. HTN essential -start pt on Losartan 4. Mild Intermittent Asthma Albuterol inhaler prn DVT proph - Lovenox Discharge Exam - Head Exam Head Exam: ATRAUMATIC, NORMAL INSPECTION, NORMOCEPHALIC - Eye Exam Eye Exam: EOMI, Normal appearance, PERRL Pupil Exam: NORMAL ACCOMODATION - ENT Exam ENT Exam: Mucous Membranes Moist, Normal External Ear Exam - Neck Exam Neck exam: Full Rom - Respiratory Exam Respiratory Exam: NORMAL BREATHING PATTERN. absent: Wheezes, Respiratory Distress - Cardiovascular Exam Cardiovascular Exam: REGULAR RHYTHM, +S1, +S2 - GI/Abdominal Exam GI & Abdominal Exam: Normal Bowel Sounds, Soft. absent: Tenderness - Extremities Exam Extremities exam: full ROM, normal capillary refill, pedal pulses present - Back Exam Back exam: FULL ROM. absent: CVA tenderness (L), CVA tenderness (R), paraspinal tenderness, vertebral tenderness - Neurological Exam Neurological exam: Alert, CN II-XII Intact, Oriented x3, Reflexes Normal - Psychiatric Exam Psychiatric exam: Normal Affect, Normal Mood - Skin Skin Exam: Dry, Normal Color, Warm Discharge Plan - Discharge Medications Prescriptions: Albuterol HFA [Ventolin HFA 90 mcg/actuation (8 g)] 1 puff IH TID PRN #1 inhaler PRN Reason: Shortness Of Breath Atorvastatin [Lipitor] 20 mg PO DAILY #30 tab diaZEpam [Valium] 2 mg PO TID #6 tab Losartan [Cozaar] 25 mg PO DAILY #30 tab - Follow Up Plan Condition: GOOD Disposition: HOME/ ROUTINE Instructions: Heart Healthy Diet, High Blood Pressure (DC), Vertigo (a Type of Dizziness) (DC) Additional Instructions: ff up [facility] in 1 wk Referrals: [facility] [place] [Outside] Berto Jackson MD [Medical Doctor] -
[2017-11-07 17:47] VITALS: BP 146/84
--- NOTE | 2017-11-07 18:14 | MRI ---
PROCEDURE: MRI BRAIN WITH AND WITHOUT CONTRAST HISTORY: follow up left frontal lobe white matter abnormali COMPARISON: Unenhanced brain MRI 11/06/2017. TECHNIQUE: Multiplanar, multisequence MR images of the brain were obtained with and without intravenous contrast enhancement (Omniscan 15 cc). FINDINGS: HEMORRHAGE: None DWI: No interval evidence of an acute or early subacute infarction. BRAIN PARENCHYMA: A cluster of white matter signal changes are again reiterated at the left frontal lobe approaching the vertex comprise a multiple small, sub cm long TR hyperintensities once again with no related enhancement appreciated. There is no abnormal intracranial enhancement throughout the brain in fact. 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 Etiology of the white matter pattern is nonspecific and could reflect an atypical pattern of asymmetric chronic microangiopathy though this is not definite. The remaining white matter is unremarkable including the corpus callosum and potential posttraumatic change is possible given this relatively focal distribution or possibly a post ischemic process common now chronic though this would suggest chronic microangiopathy rather than multiple lacune type infarcts. Demyelination is unlikely given the patient's age of 57 years an hypertension, migraine headaches and other etiologies including potential Lyme disease are not excluded. Posterior fossa contents are unremarkable including the brainstem. ENHANCEMENT: No abnormal intracranial enhancement. VENTRICLES: Unremarkable. No hydrocephalus. CRANIUM: Unremarkable. ORBITS: Grossly unremarkable. PARANASAL SINUSES/MASTOIDS: Clear VASCULAR SYSTEM: Skull base flow voids intact. OTHER FINDINGS: None . IMPRESSION: Stable limited white-matter changes left frontal lobe with no abnormal enhancement within this location or the remainder of the supra and infratentorial compartments. A relatively broad differs diagnosis of this pattern as described above with remainder the brain unremarkable appearing.
== END 2017-11-07 18:38 | disposition home or self-care (01) ==
LOC: H.ER 11:59 → H.ERHOLD 16:40 → INTOOBSV 16:40 → H.TEL 18:31
DX: R42 Dizziness and giddiness (principal); R51 Headache; I10 Essential (primary) hypertension; J45.20 Mild intermittent asthma, uncomplicated; E78.5 Hyperlipidemia, unspecified; Z91.041 Radiographic dye allergy status; Z91.013 Allergy to seafood
CPT/HCPCS: 36415; 70450; 70544; 70547; 70551; 70552; 71045; 80053; 80061; 81003; 82009; 82948; 83036; 84484; 84600; 85025; 85610; 85730; 86850; 86900; 93005; 94640; 97116; 97163; 97530; 99285; A9579; G0378; G0480; G8978; G8979; J3360; J7040

== ENCOUNTER 2018-05-30 10:21 | Emergency (ER) | payer OTHER, MEDICAID ==
[2018-05-30 10:26] VITALS: BMI 31.7
[2018-05-30] MEDS ORDERED: Tdap Vaccine 0.5 ml Vial (10-64 yrs) IM ONE ×2 (11:17→11:49)
[2018-05-30] MEDS ORDERED: Naproxen 500 MG TAB PO STA (11:17)
[2018-05-30] MEDS ORDERED: Bacitracin 500 Units/gm Oint Foilpak UD TOP STA (11:17)
[2018-05-30] MEDS ORDERED: Albuterol 0.083% Inhal Sol (2.5 mg/3 mL) UD INH STA (11:19)
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
[2018-05-30] MEDS ORDERED: Naproxen 500 MG TAB PO ONE (11:45)
[2018-05-30] MEDS ORDERED: Albuterol 0.083% Inhal Sol (2.5 mg/3 mL) UD ONE (11:47)
[2018-05-30] MEDS ORDERED: Albuterol-Ipratrop 3 mg / 0.5 (3 ml) UD INH STA (13:18)
--- NOTE | 2018-05-30 13:38 | RAD ---
Date of service: 05/30/2018 HISTORY: chest pain COMPARISON: 11/05/2017 TECHNIQUE: Chest PA and lateral FINDINGS: LUNGS: No active pulmonary disease. PLEURA: No significant pleural effusion identified. No pneumothorax apparent. CARDIOVASCULAR: No aortic atherosclerotic calcification present. Normal cardiac size. No pulmonary vascular congestion. OSSEOUS STRUCTURES: Thoracic spondylosis. VISUALIZED UPPER ABDOMEN: Normal. OTHER FINDINGS: None. IMPRESSION: No active disease. No interval pathology noted.
[2018-05-30 14:14] LABS: BLOOD UREA NITROGEN 11 mg/dl (7-17)
[2018-05-30 14:15] LABS: ALB/GLOB RATIO 1.2 (1.0-2.1); ALBUMIN 4.4 g/dL (3.5-5.0); ALT/SGPT 28 U/L (9-52); AST/SGOT 37 U/L (14-36); CALCIUM 9.6 mg/dL (8.4-10.2); GFR NON-AFRICAN AMERICAN > 60
[2018-05-30 14:37] LABS: BASO # 0.1 K/uL (0.0-0.2); BASO % 0.8 % (0.0-2.0); EOS # 0.1 K/uL (0.0-0.7); HEMOGLOBIN 13.9 g/dL (12.0-16.0); LYMPH % 15.6 % (20.0-40.0); MEAN CELL VOLUME 84.1 fl (81.0-99.0); MEAN CORPUSCULAR HEMOGLOBIN 28.2 pg (27.0-31.0); MEAN CORPUSCULAR HGB CONC 33.6 g/dL (33.0-37.0); MEAN PLATELET VOLUME 8.4 fl (7.2-11.7); MONO # 0.7 K/uL (0.0-0.8); MONO % 5.8 % (0.0-10.0); NEUT # 9.7 K/uL (1.8-7.0); NEUT % 76.8 % (50.0-75.0); NRBC % 0.2 % (0.0-0.0); RBC 4.92 Mil/uL (3.80-5.20); RED CELL DISTRIBUTION WIDTH 13.2 % (11.5-14.5); WHITE BLOOD COUNT 12.6 K/uL (4.8-10.8)
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
[2018-05-30 15:56] VITALS: BP 115/81; PULSE 86; RESP 19; TEMP 98.2
[2018-05-30 15:57] VITALS: O2SAT 98
== END 2018-05-30 16:30 | disposition home or self-care (01) ==
LOC: H.ER 10:21
DX: S50.312A Abrasion of left elbow, initial encounter (principal); S50.11XA Contusion of right forearm, initial encounter; R07.89 Other chest pain; V03.00XA Pedestrian on foot injured in collision with car, pick-up truck or van in nontraffic accident, initial encounter; Y92.410 Unspecified street and highway as the place of occurrence of the external cause; E78.00 Pure hypercholesterolemia, unspecified; I10 Essential (primary) hypertension